=== PATIENT | male | born 1960 | race Caucasian/White ===

== ENCOUNTER 2017-10-24 03:35 | Emergency (ER) | payer BC ==
[2017-10-24] MEDS ORDERED: Nitroglycerin 2% Oint 1 GM UD Packet TOP ONE (03:48)
[2017-10-24] MEDS ORDERED: Sodium Chloride 0.9% 10 ML Syringe FLUSH PRN (03:48)
--- NOTE | 2017-10-24 03:51 | EDM.PDOC ---
ED HPI GENERAL MEDICAL PROBLEM - General Stated Complaint: CHEST PAIN Time Seen by Provider: 10/24/17 03:35 Source of Information: Reports: Patient, Family History Limitations: Reports: No Limitations - History of Present Illness INITIAL COMMENTS - FREE TEXT/NARRATIVE: 56 y.o.f.m with a a strong FH of CAD came with his to the ed because the pt could not sleep. She gave him 4 baby ASAs and brought him to the ed for Chest pain. Pt had a [employer] 10 years ago which was neg. His last gen Cholesterol level was below 200. His initial ECG showed ST elevations at lead VR V1-[address] depressiona in I and II, STEMI was activated at 3.52 am. BP was 138/78 Pulse 73 RR 18 Pulse ox 98% temp 36.8 His CP level was rated as 7/10. O2 by NC, NGT, Heparin and MS were ordered. Onset: Today Onset Date: 10/24/17 Onset Time: 03:00 Duration: Minutes:, Heavy, Intermittent, Waxing/Waning Location: Reports: Chest Quality: Reports: Ache, Burning, Dull, Pressure Severity: Moderate Improves with: Reports: Medication Worsens with: Reports: Rest, Movement Context: Reports: Other (strong F/H of CAD) mid chest Pain Score (Numeric/FACES): 7 - Related Data Allergies Allergy/AdvReac Type Severity Reaction Status Date / Time No Known Allergies Allergy Verified 10/24/17 04:02 Home Meds: Home Meds NK [No Known Home Meds] 10/06/15 [History] Past Medical History HEENT History: Reports: Impaired Vision Other Gastrointestinal History: COLON POLYPS - Past Surgical History Musculoskeletal Surgical History: Reports: Arthroscopic Knee Social & Family History - Tobacco Use Smoking Status *Q: Former Smoker ED ROS GENERAL - Review of Systems Review Of Systems: See Below Constitutional: Reports: No Symptoms HEENT: Reports: No Symptoms Respiratory: Reports: No Symptoms Cardiovascular: Reports: Chest Pain Endocrine: Reports: No Symptoms GI/Abdominal: Reports: No Symptoms : Reports: No Symptoms Musculoskeletal: Reports: No Symptoms Skin: Reports: No Symptoms Neurological: Reports: No Symptoms Psychiatric: Reports: No Symptoms Hematologic/Lymphatic: Reports: No Symptoms Immunologic: Reports: No Symptoms ED EXAM, GENERAL - Physical Exam Exam: See Below Exam Limited By: No Limitations General Appearance: Alert, WD/WN, Moderate Distress Eye Exam: Bilateral Eye: Normal Inspection Ears: Normal External Exam Ear Exam: Bilateral Ear: Auricle Normal Nose: Normal Inspection Throat/Mouth: Normal Inspection, Normal Lips Head: Atraumatic, Normocephalic Neck: Normal Inspection, Supple, Non-Tender, Full Range of Motion Respiratory/Chest: No Respiratory Distress, Lungs Clear, Normal Breath Sounds, No Accessory Muscle Use, Chest Non-Tender Cardiovascular: Normal Peripheral Pulses, Regular Rate, Rhythm, No Edema, No Gallop, No Murmur, No Rub Peripheral Pulses: 1+: Radial (L) GI/Abdominal: Normal Bowel Sounds, Soft, Non-Tender (Male) Exam: No Hernia Rectal (Males) Exam: Deferred Back Exam: Normal Inspection, Full Range of Motion Extremities: Normal Inspection, Normal Range of Motion, Non-Tender, No Pedal Edema Neurological: Alert, Oriented, CN II-XII Intact, Normal Cognition, Normal Gait Psychiatric: Normal Affect, Normal Mood Skin Exam: Warm, Dry, Intact, Normal Color, No Rash Lymphatic: No Adenopathy EKG INTERPRETATION EKG Date: 10/24/17 Time: 03:55 Rhythm: NSR Rate (Beats/Min): 79 Tollhouse: LAD-Left Tollhouse Deviation P-Wave: Present QRS: Normal ST-T: Elevated (septal lat leads) QT: Normal Comparison: NA - No Prior EKG Course - Vital Signs Text/Narrative:: 56 y.o.f.m with a a strong FH of CAD came with his to the ed because the pt could not sleep. She gave him 4 baby ASAs and brought him to the ed for Chest pain. Pt had a [employer] 10 years ago which was neg. His last gen Cholesterol level was below 200. His initial ECG showed ST elevations at lead VR V1-[address] depressiona in I and II, STEMI was activated at 3.52 am. BP was 138/78 Pulse 73 RR 18 Pulse ox 98% temp 36.8 His CP level was rated as 7/10. O2 by NC, NGT, Heparin and MS were ordered. PE: WNWD WM with SSCP 7/10 ECG pos for STEMI sept/lat leads Lab: Troponin 1.164 Cr. 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, Heparin bolus (4000U), Heparin drip, Morphine 2 mg 3.53 am Consultation: , Arborist Representative [facility]: Accepted the pt for transfer Plan: Transfer by EMS to [facility], BP on transfer was 148/78 pulse 87 Last Recorded V/S: Last Vital Signs Temp 36.6 C 10/24/17 03:35 Pulse 80 10/24/17 03:35 Resp 18 10/24/17 03:35 BP 134/98 H 10/24/17 06:59 Pulse Ox 99 10/24/17 04:00 - Orders/Labs/Meds Labs: Laboratory Tests 10/24/17 10/24/17 10/24/17 Range/Units 03:50 03:50 03:50 WBC 5.3 (4.5-12.0) X10-3/uL RBC 5.69 (4.30-5.75) x10(6)uL Hgb 17.5 H (11.5-15.5) g/dL Hct 52.0 H (30.0-51.3) % MCV 91.3 (80-96) fL MCH 30.7 (27.7-33.6) pg MCHC 33.6 (32.2-35.4) g/dL RDW 12.4 (11.5-15.5) % Plt Count 128 (125-369) X10(3)uL MPV 8.2 (7.4-10.4) fL Neut % (Auto) 57.3 (46-82) % Lymph % (Auto) 28.0 (13-37) % [place] % (Auto) 10.0 (4-12) % Eos % (Auto) 3 (1.0-5.0) % Baso % (Auto) 1 (0-2) % Neut # (Auto) 3.0 (1.6-8.3) # Lymph # (Auto) 1.5 (0.6-5.0) # [place] # (Auto) 0.5 (0.0-1.3) # Eos # (Auto) 0.2 (0.0-0.8) # Baso # (Auto) 0.1 (0.0-0.2) # PT 9.9 (8.7-11.1) INR 0.98 (0.89-1.13) D-Dimer, Quantitative < 100 L (100-400) ng/mL Sodium (135-145) mmol/L Potassium (3.5-5.3) mmol/L Chloride (100-110) mmol/L Carbon Dioxide (21-32) mmol/L BUN (7-18) mg/dL Creatinine (0.70-1.30) mg/dL Est Cr Clr Drug Dosing Estimated GFR (MDRD) (>60) BUN/Creatinine Ratio (9-20) Glucose (80-116) mg/dL Calcium (8.6-10.2) mg/dL Troponin I (<0.017-0.056) ng/mL 10/24/17 10/24/17 Range/Units 03:50 03:50 WBC (4.5-12.0) X10-3/uL RBC (4.30-5.75) x10(6)uL Hgb (11.5-15.5) g/dL Hct (30.0-51.3) % MCV (80-96) fL MCH (27.7-33.6) pg MCHC (32.2-35.4) g/dL RDW (11.5-15.5) % Plt Count (125-369) X10(3)uL MPV (7.4-10.4) fL Neut % (Auto) (46-82) % Lymph % (Auto) (13-37) % [place] % (Auto) (4-12) % Eos % (Auto) (1.0-5.0) % Baso % (Auto) (0-2) % Neut # (Auto) (1.6-8.3) # Lymph # (Auto) (0.6-5.0) # [place] # (Auto) (0.0-1.3) # Eos # (Auto) (0.0-0.8) # Baso # (Auto) (0.0-0.2) # PT (8.7-11.1) INR (0.89-1.13) D-Dimer, Quantitative (100-400) ng/mL Sodium 140 (135-145) mmol/L Potassium 3.8 (3.5-5.3) mmol/L Chloride 102 (100-110) mmol/L Carbon Dioxide 30 (21-32) mmol/L BUN 17 (7-18) mg/dL Creatinine 1.5 H (0.70-1.30) mg/dL Est Cr Clr Drug Dosing TNP Estimated GFR (MDRD) 48 L (>60) BUN/Creatinine Ratio 11.3 (9-20) Glucose 109 (80-116) mg/dL Calcium 9.5 (8.6-10.2) mg/dL Troponin I 1.164 H* (<0.017-0.056) ng/mL Meds: Medications Discontinued Medications Generic Name Dose Route Start Last Admin Trade Name Freq PRN Reason Stop Dose Admin Heparin Sodium (Porcine) Confirm 10/24/17 04:10 10/24/17 05:18 Heparin Sodium Administered 10/24/17 04:11 Not Given Dose 5,000 units .ROUTE .STK-MED ONE Heparin Sodium (Porcine) 5,000 units 10/24/17 04:10 10/24/17 04:15 Heparin Sodium IVPUSH 10/24/17 04:11 4,000 units ONETIME ONE Administration Sodium Chloride 1,000 mls @ 125 mls/hr 10/24/17 04:00 10/24/17 04:04 Normal Saline IV 125 mls/hr ASDIRECTED FELICIANO Administration Nitroglycerin/Dextrose 25 mg in 250 mls @ 6 mls/hr 10/24/17 04:00 10/24/17 04 :32 Nitroglycerin 25 Mg/D5w 250 Ml IV 15 mcg/min TITRATE FELICIANO 9 mls/hr Titration Protocol 10 MCG/MIN Nitroglycerin/Dextrose Confirm 10/24/17 04:01 10/24/17 06:59 Nitroglycerin 25 Mg/D5w 250 Ml Administered 10/24/17 04:02 Not Given Dose 25 mg in 250 mls @ as directed .ROUTE .STK-MED ONE Heparin Sodium/Sodium Chloride 25,000 units in 500 mls @ 0 mls/hr 10/24/17 04: 15 Heparin 25,000 Units In 1/2 Ns 500 Ml IV TITRATE FELICIANO Protocol 12 UNITS/KG/HR Heparin Sodium/Sodium Chloride 25,000 units in 500 mls @ 20 mls/hr 10/24/17 04 :15 10/24/17 04:20 Heparin 25,000 Units In 1/2 Ns 500 Ml IV 950 mls/hr TITRATE FELICIANO Administration Protocol Morphine Sulfate Confirm 10/24/17 04:16 10/24/17 05:25 Morphine Administered 10/24/17 04:17 Not Given Dose 2 mg .ROUTE .STK-MED ONE Morphine Sulfate Confirm 10/24/17 04:26 10/24/17 05:25 Morphine Administered 10/24/17 04:27 Not Given Dose 2 mg .ROUTE .STK-MED ONE Morphine Sulfate 2 mg 10/24/17 04:29 10/24/17 04:29 Morphine IVPUSH 10/24/17 04:30 2 mg ONETIME ONE Administration Morphine Sulfate 2 mg 10/24/17 05:24 10/24/17 04:18 Morphine IVPUSH 10/24/17 05:25 2 mg ONETIME ONE Administration Nitroglycerin 1 gm 10/24/17 03:48 10/24/17 04:08 Nitro-Bid 2% TOP 10/24/17 03:49 Not Given ONETIME ONE Sodium Chloride 10 ml 10/24/17 03:48 10/24/17 04:02 Saline Flush FLUSH 10 ml ASDIRECTED PRN Administration Keep Vein Open Departure - Departure Time of Disposition: 04:40 Disposition: DC/Tfer to [facility] Reason for Transfer *Q: Other (no Arborist Representative) Condition: Fair Clinical Impression: STEMI (ST elevation myocardial infarction) Qualifiers: Involved coronary artery: LAD coronary artery Qualified Code(s): I21.02 - ST elevation (STEMI) myocardial infarction involving left anterior descending coronary artery Referrals: Berhane Walker MD [Primary Care Provider] - Forms: ED Department Discharge
[2017-10-24] MEDS ORDERED: Sodium Chloride 0.9% 1,000 ML IV SCH (04:00)
[2017-10-24] MEDS ORDERED: Nitroglycerin/D5W 25 MG/250 ML BOTTLE IV SCH (04:00)
[2017-10-24] MEDS ORDERED: Nitroglycerin/D5W 25 MG/250 ML BOTTLE ONE (04:01)
[2017-10-24] MEDS ORDERED: Heparin Sodium 5,000 Units/ML Vial IVPUSH ONE (04:10)
[2017-10-24] MEDS ORDERED: Heparin Sodium/0.45% NaCl 25,000 UNITS/500 ML BAG IV SCH ×2 (04:15)
[2017-10-24] MEDS: Heparin Sodium 5,000 Units/ML Vial ONE ×2 (04:15→05:18)
[2017-10-24] MEDS ORDERED: Morphine 2 MG/ML Syringe ONE ×2 (04:16→04:26)
[2017-10-24] MEDS ORDERED: Morphine 2 MG/ML Syringe IVPUSH ONE ×2 (04:29→05:24)
[2017-10-24 06:54] VITALS: BP 134/98
== END 2017-10-24 04:40 | disposition critical access hospital (66) ==
LOC: FB.ED 03:35
DX: I21.02 ST elevation (STEMI) myocardial infarction involving left anterior descending coronary artery (principal); Z87.891 Personal history of nicotine dependence
CPT/HCPCS: 80048; 84484; 85025; 85379; 85610; 93005; 96365; 96368; 96375; 96376; 99291; J1644; J2270; J7040; J7050

== ENCOUNTER 2024-05-12 09:14 | Emergency (ER) | payer OTHER, MEDICARE, BC ==
[2024-05-12 10:14] VITALS: BP 135/82; PULSE 62
== END 2024-05-12 09:58 | disposition home or self-care (01) ==
LOC: FB.ED 09:14
DX: S09.90XA Unspecified injury of head, initial encounter (principal); D69.1 Qualitative platelet defects; I10 Essential (primary) hypertension; I25.2 Old myocardial infarction; E78.00 Pure hypercholesterolemia, unspecified; V49.40XA Driver injured in collision with unspecified motor vehicles in traffic accident, initial encounter
CPT/HCPCS: 70450; 99283; 99284